=== PATIENT | female | born 1985 | race Caucasian/White ===

== ENCOUNTER 2019-07-03 20:17 | Emergency (ER) | payer BC ==
[2019-07-03] MEDS ORDERED: SODIUM CHLORIDE 1,000 ML IV STA (20:22)
[2019-07-03] MEDS ORDERED: ONDANSETRON 4 MG/2 ML VIAL IVPUSH ONE (20:22)
[2019-07-03 20:23] VITALS: TEMP 98.4; BMI 33.4
--- NOTE | 2019-07-03 20:23 | PDOC ---
Rapid Medical Evaluation Chief Complaint: Pain Time Seen by Provider: 07/03/19 20:20 Medical Evaluation: Allergies Allergy/AdvReac Type Severity Reaction Status Date / Time No Known Allergies Allergy Verified 07/03/19 20:21 07/03/19 20:22 Pt presents with RUQ pain for 2-3 days. States she is also nausous. Was evaluated in another ER and had a negative RUQ US at that time. Denies dysuria, hematuria, back pain Exam: TTP of RUQ Orders: labs, urine, IV Pt to proceed to the ER for further evaluation Discharge Disposition - Diagnosis Abdominal pain Qualifiers: Abdominal location: right upper quadrant Qualified Code(s): R10.11 - Right upper quadrant pain - Referrals - Patient Instructions - Post Discharge Activity
[2019-07-03 21:15] LABS: BASO % 0.6 % (0-2.0); EOS % 3.1 % (0-4.5); HEMATOCRIT 41.3 % (32.4-45.2); HEMOGLOBIN 13.7 GM/dL (10.7-15.3); LYMPH % 20.4 % (8-40); MCH 30.6 pg (25.7-33.7); MCHC 33.1 g/dl (32.0-36.0); MEAN CELL VOLUME 92.6 fl (80-96); MONO % 7.3 % (3.8-10.2); NEUT % 68.6 % (42.8-82.8); PLATELET COUNT 256 K/MM3 (134-434); RBC 4.46 M/mm3 (3.60-5.2); WHITE BLOOD COUNT 14.3 K/mm3 (4.0-10.0)
[2019-07-03 21:17] LABS: EPI CELLS 5.3 /HPF (0-5/HPF); HYALINE CASTS 5 /lpf (0-8); PH,URINE 5.5 (5.0-8.0); URINE APPEARANCE CLEAR; URINE BACTERIA 313.1 /hpf (NEGATIVE); URINE BILIRUBIN NEGATIVE (NEGATIVE); URINE COLOR YELLOW; URINE GLUCOSE (UA) NEGATIVE (NEGATIVE); URINE KETONE NEGATIVE (NEGATIVE); URINE LEUK ESTERASE NEGATIVE (NEGATIVE); URINE NITRITE NEGATIVE (NEGATIVE); URINE PROTEIN NEGATIVE (NEGATIVE); URINE RBC 19 /hpf (0-4); URINE UROBILINOGEN 0.2 mg/dL (0.2-1.0); URINE WBC 2 /hpf (0-5)
[2019-07-03 21:37] LABS: ALBUMIN 3.5 g/dl (3.4-5.0); BILIRUBIN,TOTAL 0.3 mg/dL (0.2-1); BLOOD UREA NITROGEN 9.6 mg/dL (7-18); CALCIUM 8.9 mg/dL (8.5-10.1); CREATININE 0.6 mg/dL (0.55-1.3); POTASSIUM 3.8 mmol/L (3.5-5.1); TOT PROT 6.3 g/dl (6.4-8.2)
[2019-07-03] MEDS ORDERED: ONDANSETRON 4 MG/2 ML VIAL ONE (21:46)
[2019-07-03] MEDS ORDERED: morphine CARPU-JECT 4 MG/1 ML DISP.SYRIN IVPUSH ONE (22:35)
[2019-07-03] MEDS ORDERED: morphine SULFATE 4 MG/ML VIAL ONE (22:55)
[2019-07-04] MEDS ORDERED: ACETAMINOPHEN 1000 MG/100 ML VIAL (NON FORMULARY) IVPB ONE (00:28)
[2019-07-04] MEDS ORDERED: ACETAMINOPHEN INJECTION 100 ML IVPB ONE (00:59)
--- NOTE | 2019-07-04 01:19 | PDOC ---
History of Present Illness - General Chief Complaint: Pain Stated Complaint: ABD PAIN Time Seen by Provider: 07/03/19 20:20 History Source: Patient Exam Limitations: No Limitations Past History - Past Medical History Allergies/Adverse Reactions: Allergies Allergy/AdvReac Type Severity Reaction Status Date / Time No Known Allergies Allergy Verified 07/03/19 20:21 Home Medications: Ambulatory Orders NK [No Known Home Medication] 07/03/19 COPD: No - Reproductive History Is Patient Now?: No Tubal Ligation: Yes - Suicide/Smoking/Psychosocial Hx Smoking History: Current every day smoker Number of Cigarettes Smoked Daily: 10 Information on smoking cessation initiated: No *Physical Exam - Vital Signs Last Vital Signs Temp Pulse Resp BP Pulse Ox 98.4 F 105 H 18 133/71 100 07/03/19 20:21 07/03/19 20:21 07/03/19 20:21 07/03/19 20:21 07/03/19 20:21 - Physical Exam General Appearance: No: Apparent Distress Respiratory/Chest: positive: Lungs Clear, Normal Breath Sounds. negative: Respiratory Distress Cardiovascular: positive: Regular Rhythm, Regular Rate, S1, S2. negative: Murmur Gastrointestinal/Abdominal: positive: Tender (along RUQ/RLQ region), Soft. negative: Distended, Guarding, Rebound Musculoskeletal: negative: CVA Tenderness Neurologic: positive: Alert, Normal Mood/Affect ED Treatment Course - LABORATORY CBC & Chemistry Diagram: 07/03/19 20:52 07/03/19 20:52 - ADDITIONAL ORDERS Additional order review: Laboratory Results 07/03/19 07/03/19 07/03/19 20:52 20:52 20:52 Sodium 140 Potassium 3.8 Chloride 109 H Carbon Dioxide 25 Anion Gap 7 L BUN 9.6 Creatinine 0.6 Est GFR (CKD-EPI)AfAm 136.87 Est GFR (CKD-EPI)NonAf 118.09 Random Glucose 85 Calcium 8.9 Total Bilirubin 0.3 AST 13 L ALT 24 Alkaline Phosphatase 88 Total Protein 6.3 L Albumin 3.5 Lipase 72 L Serum , Qual Negative Urine Color Urine Appearance Urine pH Ur Specific [place] Urine Protein Urine Glucose (UA) Urine Ketones Urine Blood Urine Nitrite Urine Bilirubin Urine Urobilinogen Ur Leukocyte Esterase Urine WBC (Auto) Urine RBC (Auto) Urine Casts (Auto) U Epithel Cells (Auto) Urine Bacteria (Auto) 07/03/19 16:52 Sodium Potassium Chloride Carbon Dioxide Anion Gap BUN Creatinine Est GFR (CKD-EPI)AfAm Est GFR (CKD-EPI)NonAf Random Glucose Calcium Total Bilirubin AST ALT Alkaline Phosphatase Total Protein Albumin Lipase Serum , Qual Urine Color Yellow Urine Appearance Clear Urine pH 5.5 Ur Specific [place] 1.031 Urine Protein Negative Urine Glucose (UA) Negative Urine Ketones Negative Urine Blood 2+ H Urine Nitrite Negative Urine Bilirubin Negative Urine Urobilinogen 0.2 Ur Leukocyte Esterase Negative Urine WBC (Auto) 2 Urine RBC (Auto) 19 Urine Casts (Auto) 5 U Epithel Cells (Auto) 5.3 Urine Bacteria (Auto) 313.1 07/03/19 20:52 RBC 4.46 MCV 92.6 MCHC 33.1 RDW 14.0 MPV 9.0 Neutrophils % 68.6 Lymphocytes % 20.4 Monocytes % 7.3 Eosinophils % 3.1 Basophils % 0.6 - RADIOLOGY Radiology Studies Ordered: Category Date Time Status ABDOMEN & PELVIS CT WITH CONTR [CT] Stat CT Scan 07/04/19 00:05 Taken - Medications Given in the ED: ED Medications Discontinued Medications Generic Name Dose Route Start Last Admin Trade Name Freq PRN Reason Stop Dose Admin Acetaminophen 1,000 mg 07/04/19 00:28 07/04/19 01:03 Ofirmev Injection - IVPB 07/04/19 00:29 1,000 mg ONCE ONE Administration Sodium Chloride 1,000 mls @ 1,000 mls/hr 07/03/19 20:22 07/03/19 21:47 Normal Saline - IV 07/03/19 21:21 1,000 mls/hr ASDIR STA Administration Morphine Sulfate 4 mg 07/03/19 22:35 07/03/19 23:02 Morphine Injection - IVPUSH 07/03/19 22:36 4 mg ONCE ONE Administration Ondansetron HCl 4 mg 07/03/19 20:22 07/03/19 21:47 Zofran Injection IVPUSH 07/03/19 20:23 4 mg ONCE ONE Administration Medical Decision Making - Medical Decision Making 33 y/o F with no sig pmh presents with R sided, sharp abdominal pain from 5 days ago which is worse with movement of body. Has been taking Motrin without relief of pain. States she went to [facility] 3 days ago, where she states she had lab and RUQ US done, was given Toradol and discharged though she states she wasn't feeling any better. Only surgical hx was . +nausea. Denies fever , sob, cp, vomiting, diarrhea, urinary complaints. Abnormal Lab Results 07/03/19 07/03/19 07/03/19 16:52 20:52 20:52 WBC 14.3 H Absolute Neuts (auto) 9.8 H Chloride 109 H Anion Gap 7 L AST 13 L Total Protein 6.3 L Lipase Urine Blood 2+ H 07/03/19 20:52 WBC Absolute Neuts (auto) Chloride Anion Gap AST Total Protein Lipase 72 L Urine Blood Labs reviewed Consider appendicitis vs kidney stones vs cholecystitis vs gallstones Given Morphine for pain and pending results of CT A/P 07/04/19 01:17 CT A/P: There is a 10.4 cm x 6.2 cm x 4.4 cm focus of fatty inflammation in the right anterior abdomen. The findings are most consistent with omental infarction. The appendix is normal. No bowel inflammation is identified. Negative for diverticulitis or colitis. No free intraperitoneal air or free fluid. Normal liver. No obvious gallbladder abnormalities. Normal spleen. Normal pancreas. Normal adrenal glands. Normal kidneys and urinary tracts and urinary bladder. Osseous structures are intact. Dr. Putnam, surgery, paged but have not yet heard back Signed out to Dr. Ruiz pending surgery callback 07/04/19 01:55 *DC/Admit/Observation/Transfer Diagnosis at time of Disposition: Omental infarction - Referrals - Patient Instructions - Post Discharge Activity
--- NOTE | 2019-07-04 03:15 | PDOC ---
*Physical Exam - Vital Signs Last Vital Signs Temp Pulse Resp BP Pulse Ox 98.4 F 105 H 18 133/71 100 07/03/19 20:21 07/03/19 20:21 07/03/19 20:21 07/03/19 20:21 07/03/19 20:21 ED Treatment Course - LABORATORY CBC & Chemistry Diagram: 07/03/19 20:52 07/03/19 20:52 - ADDITIONAL ORDERS Additional order review: Laboratory Results 07/03/19 07/03/19 07/03/19 20:52 20:52 20:52 Sodium 140 Potassium 3.8 Chloride 109 H Carbon Dioxide 25 Anion Gap 7 L BUN 9.6 Creatinine 0.6 Est GFR (CKD-EPI)AfAm 136.87 Est GFR (CKD-EPI)NonAf 118.09 Random Glucose 85 Calcium 8.9 Total Bilirubin 0.3 AST 13 L ALT 24 Alkaline Phosphatase 88 Total Protein 6.3 L Albumin 3.5 Lipase 72 L Serum , Qual Negative Urine Color Urine Appearance Urine pH Ur Specific [place] Urine Protein Urine Glucose (UA) Urine Ketones Urine Blood Urine Nitrite Urine Bilirubin Urine Urobilinogen Ur Leukocyte Esterase Urine WBC (Auto) Urine RBC (Auto) Urine Casts (Auto) U Epithel Cells (Auto) Urine Bacteria (Auto) 07/03/19 16:52 Sodium Potassium Chloride Carbon Dioxide Anion Gap BUN Creatinine Est GFR (CKD-EPI)AfAm Est GFR (CKD-EPI)NonAf Random Glucose Calcium Total Bilirubin AST ALT Alkaline Phosphatase Total Protein Albumin Lipase Serum , Qual Urine Color Yellow Urine Appearance Clear Urine pH 5.5 Ur Specific [place] 1.031 Urine Protein Negative Urine Glucose (UA) Negative Urine Ketones Negative Urine Blood 2+ H Urine Nitrite Negative Urine Bilirubin Negative Urine Urobilinogen 0.2 Ur Leukocyte Esterase Negative Urine WBC (Auto) 2 Urine RBC (Auto) 19 Urine Casts (Auto) 5 U Epithel Cells (Auto) 5.3 Urine Bacteria (Auto) 313.1 07/03/19 20:52 RBC 4.46 MCV 92.6 MCHC 33.1 RDW 14.0 MPV 9.0 Neutrophils % 68.6 Lymphocytes % 20.4 Monocytes % 7.3 Eosinophils % 3.1 Basophils % 0.6 - Medications Given in the ED: ED Medications Discontinued Medications Generic Name Dose Route Start Last Admin Trade Name Freq PRN Reason Stop Dose Admin Acetaminophen 1,000 mg 07/04/19 00:28 07/04/19 01:03 Ofirmev Injection - IVPB 07/04/19 00:29 1,000 mg ONCE ONE Administration Sodium Chloride 1,000 mls @ 1,000 mls/hr 07/03/19 20:22 07/03/19 21:47 Normal Saline - IV 07/03/19 21:21 1,000 mls/hr ASDIR STA Administration Morphine Sulfate 4 mg 07/03/19 22:35 07/03/19 23:02 Morphine Injection - IVPUSH 07/03/19 22:36 4 mg ONCE ONE Administration Ondansetron HCl 4 mg 07/03/19 20:22 07/03/19 21:47 Zofran Injection IVPUSH 07/03/19 20:23 4 mg ONCE ONE Administration Medical Decision Making - Medical Decision Making 07/04/19 03:[address] Putnam who reports conservative management with pain control and f.u outpatient *DC/Admit/Observation/Transfer Diagnosis at time of Disposition: Omental infarction - Discharge Dispostion Disposition: HOME Condition at time of disposition: Stable Decision to Admit order: No - Referrals Referrals: Steffen Resendez MD [Staff Physician] - Wagner Putnam MD [Staff Physician] - - Patient Instructions Printed Discharge Instructions: DI for Abdominal Pain-Adult Additional Instructions: You were seen in the ED for abdominal pain Your imaging was significant for omental infarct Omental infarction is a rare cause of acute abdomen resulting from vascular compromise of the greater omentum. Follow up with your Primary Care Doctor within 1 week Referral to General Surgery and GI have been given to you, please follow up within 1 week. Return to the ED if your symptoms worsen, if you have nausea, vomiting or fevers. - Post Discharge Activity Forms/Work/School Notes: Back to Work
[2019-07-04] MEDS ORDERED: KETOROLAC TROMETHAMINE 15 MG/ML VIAL IM ONE (03:26)
[2019-07-04] MEDS ORDERED: KETOROLAC TROMETHAMINE 30 MG/1 ML VIAL IM ONE (03:27)
[2019-07-04] MEDS ORDERED: KETOROLAC TROMETHAMINE 30 MG/1 ML VIAL ONE (03:28)
[2019-07-04 03:39] VITALS: BP 131/74; PULSE 74
== END 2019-07-04 03:39 | disposition home or self-care (01) ==
LOC: JER 20:17
PROC: 3E033NZ Introduction of Analgesics, Hypnotics, Sedatives into Peripheral Vein, Percutaneous Approach (ICD-10-PCS; principal; 2019-07-03)
PROC: 3E0233Z Introduction of Anti-inflammatory into Muscle, Percutaneous Approach (ICD-10-PCS; 2019-07-03)
PROC: 3E033GC Introduction of Other Therapeutic Substance into Peripheral Vein, Percutaneous Approach (ICD-10-PCS; 2019-07-03)
PROC: 3E0337Z Introduction of Electrolytic and Water Balance Substance into Peripheral Vein, Percutaneous Approach (ICD-10-PCS; 2019-07-03)
DX: R10.11 Right upper quadrant pain (principal)
CPT/HCPCS: 36415; 74177-TC; 80053; 81003; 83690; 84703; 85025; 87086; 99282-25; J0131; J7030